=== PATIENT | female | born 1995 | race Caucasian/White ===

== ENCOUNTER 2020-08-07 12:50 | Emergency (ER) | payer OTHER ==
[2020-08-07 13:14] VITALS: BP 138/96; TEMP 99.5; BMI 27.4
[2020-08-07] MEDS ORDERED: valACYclovir HCL 1000 MG TABLET PO ONE (13:26)
[2020-08-07] MEDS ORDERED: valACYclovir HCL 500 MG TABLET (FP) ONE (13:31)
[2020-08-07 14:03] VITALS: PULSE 94
[2020-08-07 15:58] LABS: HIV INTERPRETATION NEGATIVE (NEGATIVE)
== END 2020-08-07 14:02 | disposition home or self-care (01) ==
LOC: FER 12:50
DX: A60.04 Herpesviral vulvovaginitis (principal); J06.9 Acute upper respiratory infection, unspecified
CPT/HCPCS: 36415; 84703; 86780; 87070; 87077; 87389; 87491; 87591; 87661; 87880; 99283-25

== ENCOUNTER 2021-10-08 10:00 | Emergency (ER) | payer OTHER ==
[2021-10-08 10:15] VITALS: BP 135/90; PULSE 119; TEMP 100.1; BMI 27.4
[2021-10-08] MEDS ORDERED: ACETAMINOPHEN 500 MG TABLET (FP) PO ONE (10:46)
[2021-10-08] MEDS ORDERED: ACETAMINOPHEN 500 MG TABLET (FP) ONE (10:48)
== END 2021-10-08 11:09 | disposition home or self-care (01) ==
LOC: FER 10:00
DX: J02.9 Acute pharyngitis, unspecified (principal)
CPT/HCPCS: 87651; 87804; 99283-25; C9803; U0003; U0005

== ENCOUNTER 2023-02-05 08:28 | Emergency (ER) | payer OTHER ==
[2023-02-05 08:41] VITALS: BP 124/85; RESP 20; TEMP 98.2; BMI 28.2
[2023-02-05] MEDS ORDERED: ACETAMINOPHEN 1000 MG/100 ML BAG IVPB ONE (08:48)
[2023-02-05] MEDS ORDERED: SODIUM CHLORIDE 1,000 ML IV ONE (08:48)
[2023-02-05] MEDS ORDERED: ONDANSETRON 4 MG/2 ML VIAL IVPUSH ONE (08:48)
[2023-02-05] MEDS ORDERED: ONDANSETRON 4 MG/2 ML VIAL ONE (09:10)
[2023-02-05] MEDS ORDERED: ACETAMINOPHEN INJECTION 100 ML IVPB ONE (09:10)
[2023-02-05 09:36] LABS: HEMATOCRIT 45.7 % (32.4-45.2); HEMOGLOBIN 15.1 G/dL (10.7-15.3); MCH 30.8 pg (25.7-33.7); MEAN CELL VOLUME 93.4 fl (80-96); MEAN PLT VOLUME 9.9 fl (7.5-11.1); PLATELET COUNT 224.3 10^3/uL (134-434); RBC 4.89 10^6/uL (3.60-5.2); RDW 13.9 % (11.6-15.6); WHITE BLOOD COUNT 9.5 10^3/uL (4.0-10.8)
[2023-02-05 09:42] LABS: ALBUMIN 3.7 g/dl (3.4-5.0); BILIRUBIN,TOTAL 0.6 mg/dl (0.2-1); CREATININE 0.8 mg/dl (0.55-1.3); POTASSIUM 3.9 mmol/L (3.5-5.1); TOT PROT 7.2 g/dl (6.4-8.2)
[2023-02-05 10:30] LABS: PLATELET ESTIMATE ADEQUATE
[2023-02-05 11:08] LABS: EPITHELIAL CELLS MODERATE /hpf
[2023-02-05 12:28] VITALS: PULSE 97
== END 2023-02-05 12:55 | disposition home or self-care (01) ==
LOC: FER 08:28
PROC: 3E033NZ Introduction of Analgesics, Hypnotics, Sedatives into Peripheral Vein, Percutaneous Approach (ICD-10-PCS; principal; 2023-02-05)
PROC: 3E033GC Introduction of Other Therapeutic Substance into Peripheral Vein, Percutaneous Approach (ICD-10-PCS; 2023-02-05)
PROC: 3E0337Z Introduction of Electrolytic and Water Balance Substance into Peripheral Vein, Percutaneous Approach (ICD-10-PCS; 2023-02-05)
DX: R19.7 Diarrhea, unspecified (principal); R10.32 Left lower quadrant pain; K52.9 Noninfective gastroenteritis and colitis, unspecified; R11.2 Nausea with vomiting, unspecified; R63.0 Anorexia; E86.0 Dehydration; R00.0 Tachycardia, unspecified
CPT/HCPCS: 36415; 74177-TC; 80053; 81003; 81015; 83690; 84703; 85027; 93005; 96361; 96374; 96375; 99285-25; Q9967

== ENCOUNTER 2023-04-07 19:03 | Emergency (ER) | payer OTHER ==
[2023-04-07 19:14] VITALS: BP 134/96; PULSE 92; RESP 15; TEMP 98.7; BMI 27.9
[2023-04-07] MEDS ORDERED: FOLIC ACID INJECTION - 1 MG, THIAMINE HCL 100 MG, MULTIVIT INJECTION ADULT 10 ML in SOD... IVPB ONE (19:45)
[2023-04-07] MEDS ORDERED: METOCLOPRAMIDE HCL INJECTION 10 MG/2 ML VIAL IVPUSH ONE (19:47)
[2023-04-07] MEDS ORDERED: ACETAMINOPHEN 500 MG TABLET (FP) PO ONE (19:48)
[2023-04-07] MEDS ORDERED: THIAMINE HCL 200 MG/2 ML VIAL ONE (20:36)
[2023-04-07] MEDS ORDERED: METOCLOPRAMIDE HCL INJECTION 10 MG/2 ML VIAL ONE ×2 (20:36→20:54)
[2023-04-07] MEDS ORDERED: FOLIC ACID 5 MG/1 ML ONE ×2 (20:37→20:43)
[2023-04-07] MEDS ORDERED: MULTIVIT INJ. ADULT COMBO WITH VIT K 1 COMBO 10 ML VIAL IV ONE (20:37)
[2023-04-07] MEDS ORDERED: ACETAMINOPHEN 500 MG TABLET (FP) ONE (21:07)
[2023-04-07 21:19] LABS: HCG,QUALITATIVE URINE Negative
[2023-04-07 21:29] LABS: EPITHELIAL CELLS MODERATE /hpf
== END 2023-04-07 22:19 | disposition home or self-care (01) ==
LOC: FER 19:03
PROC: 3E033GC Introduction of Other Therapeutic Substance into Peripheral Vein, Percutaneous Approach (ICD-10-PCS; principal; 2023-04-07)
PROC: 3E033GC Introduction of Other Therapeutic Substance into Peripheral Vein, Percutaneous Approach (ICD-10-PCS; 2023-04-07)
PROC: 3E033GC Introduction of Other Therapeutic Substance into Peripheral Vein, Percutaneous Approach (ICD-10-PCS; 2023-04-07)
PROC: 3E033GC Introduction of Other Therapeutic Substance into Peripheral Vein, Percutaneous Approach (ICD-10-PCS; 2023-04-07)
PROC: 3E033GC Introduction of Other Therapeutic Substance into Peripheral Vein, Percutaneous Approach (ICD-10-PCS; 2023-04-07)
PROC: 3E033GC Introduction of Other Therapeutic Substance into Peripheral Vein, Percutaneous Approach (ICD-10-PCS; 2023-04-07)
PROC: 3E033GC Introduction of Other Therapeutic Substance into Peripheral Vein, Percutaneous Approach (ICD-10-PCS; 2023-04-07)
PROC: 3E033GC Introduction of Other Therapeutic Substance into Peripheral Vein, Percutaneous Approach (ICD-10-PCS; 2023-04-07)
PROC: 3E033GC Introduction of Other Therapeutic Substance into Peripheral Vein, Percutaneous Approach (ICD-10-PCS; 2023-04-07)
DX: R51.9 Headache, unspecified (principal); R53.1 Weakness
CPT/HCPCS: 36415; 81003; 81015; 84436; 84443; 84703; 99284-25